=== PATIENT | male | born 1980 | race Hispanic/Latino ===

== ENCOUNTER 2022-06-19 09:44 | Emergency (ER) | payer BC ==
[2022-06-19] MEDS ORDERED: HYDROcodone/Acetaminophen 5/325 mg Tablet ONE (10:24)
== END 2022-06-19 12:20 | disposition home or self-care (01) ==
LOC: ERS 09:44
DX: S20.212A Contusion of left front wall of thorax, initial encounter (principal); M25.522 Pain in left elbow; F17.210 Nicotine dependence, cigarettes, uncomplicated; W18.09XA Striking against other object with subsequent fall, initial encounter; Y93.01 Activity, walking, marching and hiking
CPT/HCPCS: 71046; 93005